=== PATIENT | male | born 1965 | race Caucasian/White ===

== ENCOUNTER 2019-02-09 04:36 | Inpatient (IN) | payer OTHER, SELFPAY ==
[2019-02-09] VITALS (43 sets, daily range): BP systolic 76–136; BP diastolic 44–87; PULSE 59–104; RESP 12–20; TEMP 36.1–37.2; O2SAT 94–100; BMI 24.4; BMI 24.5
--- NOTE | 2019-02-09 | IR_ITS ---
CARDIAC CATHETERIZATION DATE OF CATHETERIZATION:02/09/2019 5:41 AM PROCEDURES: 1. Left heart catheterization 2. Left ventriculogram 3. Selective coronary angiogram 4. Thrombectomy to the proximal dominant right coronary artery followed by drug-eluting stent deployment to the proximal dominant right coronary INDICATION FOR TEST: 1. Acute inferior posterior lateral right ventricular ST elevation myocardial infarction 2. Coronary artery disease Informed consent was obtained prior to the procedure. COMPLICATIONS: None ESTIMATED BLOOD LOSS: Less than 10 ml. TECHNIQUE: One percent lidocaine used to anesthetize the right anterior aspect of the wrist. The right radial artery was accessed via the Seldinger technique. A 6 Samoan sheath was placed in the right radial artery. 2.5 mg of verapamil, 800 mcg of nitroglycerin, 1mg Lidocaine were given through the arterial sheath. An QPSoftware right guide catheter was used intubate the right coronary artery and a choice PT extra-support wire was used to traverse the occlusion. A Penumbra aspiration catheter was used to aspirate a large thrombus there by restoring OLGA LIDIA-3 flow. A 5 mm x 30 mm resolute Bassam stent was deployed at 12 delio reducing the critical stenosis to 0%. Following this left heart catheterization and left ventriculography was performed. A 5 Samoan JL4 catheter was used to perform left coronary artery angiography. At the end of the procedure the apparatus was removed the sheath was removed good hemostasis was achieved using TR banding patient was transferred to the postop holding area in stable condition ANGIOGRAPHIC RESULTS: 1. The left main artery normal 2. The left anterior descending artery has proximal 20-30% stenoses mid vessel 30% stenosis followed by an additional 40-50% stenosis along a tortuous bend followed by an additional 50% stenosis. The LAD system itself is a relatively small system that does not supply the apex. There is a large first diagonal artery which has an ostial to proximal 40-50% stenosis 3. The circumflex artery is nondominant and has a 30% hazy stenosis in the first obtuse marginal artery 4. The right coronary artery is a massively large 5 mm dominant vessel which was initially proximally occluded. Following thrombectomy there is a complex ruptured plaque in the proximal segment with ulceration greater than 80%. There is an additional 40% stenosis 5. The FUNG ventriculogram reveals preserved ejection fraction 50% 6. The left ventricular end-diastolic pressure 20 mmHg IMPRESSION: 1. Critical myocardial infarction involving a massive proximal dominant right coronary artery with successful thrombectomy followed by drug-eluting stent with christianity OLGA LIDIA-3 flow 2. Preserved ejection fraction 3. Mildly elevated LVEDP PLAN: 1. Brilinta and aspirin for one year 2. LDL less than 55 3. Supportive care 4. Risk factor modification 5. Jeison inhibitors and carvedilol once hemodynamically stable 6. Cardiac rehabilitation 7. Avoidance of tobacco products
--- NOTE | 2019-02-09 04:36 | PC.NURSE ---
PT AMBULATES TO ROOM 7 WITH C/O CHEST PAIN. PT STATES HIS PAIN BEGAN AT APPROX 0030 THIS AM AFTER WORK AND HE STATES THAT HE HAD A NEAR SYNCOPAL EVENT WHILE STANDING AT HIS SINK IN WHICH HE BECAME DIZZY AND HAD TO SIT IN THE FLOOR. PT STATES HE THEN LOST HIS BOWEL AND BLADDER. PT NOW C/O CHEST AND BILATERAL ARM PAIN. EKG DONE, STEMI NOTED. DR MEEHAN NOTIFIED IMMEDIATELY AND IS AT BEDSIDE FOR EVAL. DR VYAS PAGED AT THIS TIME FOR STEMI ACTIVATION. PT PLACED ON CARDIAC, SPO2, NIBP MONITORING AND O2 AT 4LBNC. CATH PREPARATION TO FOLLOW.
--- NOTE | 2019-02-09 04:39 | PC.NURSE ---
DR MEEHAN CONSULTING WITH DR VYAS AT THIS TIME. HIGH LEAD YARDER NOTIFIED OF STEMI BY CASE LOADER OPERATOR. PT TO DEFIB MONITORING FOR CLOSE CARDIAC MONITORING. AWAITING CATH TEAM ARRIVAL.
--- NOTE | 2019-02-09 04:45 | XR_ITS ---
XR chest portable HISTORY: ITS.REASON: CHEST PAIN ORDERING PHYSICIAN: Iban Bond MD PATIENT AGE: 53 years COMPARISON: PA and lateral chest 09/15/2013. FINDINGS: The cardiomediastinal silhouette and pulmonary vascularity are within normal limits. The lungs are clear without infiltrates, suspicious nodules, or pleural effusions. No acute bony abnormalities. Monitor lines are seen overlying the chest. IMPRESSION: Negative chest, no acute finding
--- NOTE | 2019-02-09 04:47 | PC.NURSE ---
PATIENT WITH SUSTAINED RUN OF VTACH, PT REMAINS AWAKE ALERT AND ORIENTED. PT C/O PAIN ACROSS CHEST AND BILATERAL ARMS. DR MEEHAN SPEAKING WITH LILLIAM AGAIN CONCERNING EVENT. AWAITING FURTHER ORDERS.
--- NOTE | 2019-02-09 04:51 | HMH.EDCP ---
ED Disposition Clinical Impression: Tobacco use ST elevation myocardial infarction (STEMI) Qualifiers: Involved coronary artery: unspecified coronary artery Qualified Code(s): I21.3 - ST elevation (STEMI) myocardial infarction of unspecified site Disposition: Admitted As Inpatient Condition on Discharge: Critical Referrals: Provider,Referral, [Primary Care Provider] - - Critical Care Critical Care Time: Yes Attestation: On 02/09/19, the high probability of a clinically significant, sudden or life threatening deterioration of the following system(s) required my full and direct attention, intervention and personal management. The time I documented below is in addition to time spent performing reported procedures but includes the following listed in this critical care notation. Total Critical Care Time: 60 Vital system(s) involved:: Circulatory Failure My critical care processes included: Assessment & monitoring of V/S, Initial and Re-exams, Data Review/Interpretation, Coordinating Care, Medication Orders and management, Documentation Medical Decision Making - Medical Records Medical records reviewed: Yes: I reviewed the patient's medical records. - Bo Inquiry Pt receiving controlled substance: No Vital Signs: 02/09/19 04:40 Temperature 98.9 F Temperature Source Oral Pulse Rate [Right Radial] 100 H Respiratory Rate 18 Blood Pressure [Right Arm] 129/87 Blood Pressure Mean [Right Arm] 101 02 Sat by Pulse Oximetry 98 - Lab Data Lab results reviewed: Yes: I reviewed the patient's lab results. Orders (Tests/Meds): ORDERS Category Date Time Status XR chest portable Stat Exams 02/09/19 04:45 Ordered Basic Metabolic Panel Stat Lab 02/09/19 04:45 Received Complete Blood Count Auto Diff Stat Lab 02/09/19 04:45 Received Troponin I Stat Lab 02/09/19 04:45 Received - Radiology Data #1 Image(s): Chest Image Reviewed: Yes I reviewed the patient's radiology image Preliminary Findings: Abnormal (copd) - ECG Data Tracing #1 Normal Sinus Rhythm: Yes Ischemic changes: acute STEMI - Physician Consults Physician Consulted: starla Reason -: Pt condition Chest Pain HPI - General Chief Complaint: Chest Pain Stated Complaint: Chest Pain Time Seen by Provider: 02/09/19 04:40 Mode of Arrival: Ambulatory Source of Information: Patient, Spouse, Medical Record Limitations: No Limitations Description of Symptoms (Recalled from ER Triage Doc. by RN): near syncope at home tonight at approx 0030. pt states he got dizzy while standing at the sink after work and fell to the ground and lost his bowels and bladder. pt states that he is now having chest pain - History of Present Illness HPI narrative: onset of chest pain about 0030 and had syncopal episode - MD complaint: chest pain indicative of cardiac Onset (ago): hour(s) Duration: constant Activity at onset: during rest Pain location: substernal Severity: severe Quality: heaviness Pain radiation: none Associated symptoms: nausea Risk Factors for CAD: Family Hx of CAD, Smoking Treatments prior to or on arrival for Cardiac Chest Pain: none - Related Data Home Medications Medication Instructions Recorded Confirmed No Known Home Medications 02/09/19 02/09/19 Allergies Allergy/AdvReac Type Severity Reaction Status Date / Time No Known Allergies Allergy Verified 02/09/19 04:44 [facility] History - Hepatitis A Screen Drug use history?: Yes High risk sexual behaviors?: No History of sexually transmitted infection?: No Currently employed?: No Childcare worker?: No Do you have indoor plumbing?: Yes Do you have electricity?: Yes Attestation statement:: This patient has been screened for Hepatitis A risk factors. I have reviewed the patient's past medical history: Yes Medical History: Denies:: Cancer, Diabetes Mellitus Type 1, Diabetes Mellitus Type 2, MRSA Amputation: No - Social History Smoking Status:
--- NOTE | 2019-02-09 04:54 | ED_ITS ---
ED Disposition Clinical Impression: Tobacco use ST elevation myocardial infarction (STEMI) Qualifiers: Involved coronary artery: unspecified coronary artery Qualified Code(s): I21.3 - ST elevation (STEMI) myocardial infarction of unspecified site Disposition: Admitted As Inpatient Condition on Discharge: Critical Referrals: Provider,Referral, [Primary Care Provider] - - Critical Care Critical Care Time: Yes Attestation: On 02/09/19, the high probability of a clinically significant, sudden or life threatening deterioration of the following system(s) required my full and direct attention, intervention and personal management. The time I documented below is in addition to time spent performing reported procedures but includes the following listed in this critical care notation. Total Critical Care Time: 60 Vital system(s) involved:: Circulatory Failure My critical care processes included: Assessment & monitoring of V/S, Initial and Re-exams, Data Review/Interpretation, Coordinating Care, Medication Orders and management, Documentation Medical Decision Making - Medical Records Medical records reviewed: Yes: I reviewed the patient's medical records. - Bo Inquiry Pt receiving controlled substance: No Vital Signs: 02/09/19 04:40 Temperature 98.9 F Temperature Source Oral Pulse Rate [Right Radial] 100 H Respiratory Rate 18 Blood Pressure [Right Arm] 129/87 Blood Pressure Mean [Right Arm] 101 02 Sat by Pulse Oximetry 98 - Lab Data Lab results reviewed: Yes: I reviewed the patient's lab results. Orders (Tests/Meds): ORDERS Category Date Time Status XR chest portable Stat Exams 02/09/19 04:45 Ordered Basic Metabolic Panel Stat Lab 02/09/19 04:45 Received Complete Blood Count Auto Diff Stat Lab 02/09/19 04:45 Received Troponin I Stat Lab 02/09/19 04:45 Received - Radiology Data #1 Image(s): Chest Image Reviewed: Yes I reviewed the patient's radiology image Preliminary Findings: Abnormal (copd) - ECG Data Tracing #1 Normal Sinus Rhythm: Yes Ischemic changes: acute STEMI - Physician Consults Physician Consulted: starla Reason -: Pt condition Chest Pain HPI - General Chief Complaint: Chest Pain Stated Complaint: Chest Pain Time Seen by Provider: 02/09/19 04:40 Mode of Arrival: Ambulatory Source of Information: Patient, Spouse, Medical Record Limitations: No Limitations Description of Symptoms (Recalled from ER Triage Doc. by RN): near syncope at home tonight at approx 0030. pt states he got dizzy while standing at the sink after work and fell to the ground and lost his bowels and bladder. pt states that he is now having chest pain - History of Present Illness HPI narrative: onset of chest pain about 0030 and had syncopal episode - MD complaint: chest pain indicative of cardiac Onset (ago): hour(s) Duration: constant Activity at onset: during rest Pain location: substernal Severity: severe Quality: heaviness Pain radiation: none Associated symptoms: nausea Risk Factors for CAD: Family Hx of CAD, Smoking Treatments prior to or on arrival for Cardiac Chest Pain: none - Related Data Home Medications Medication Instructions Recorded Confirmed No Known Home Medicat
[2019-02-09 04:58] LABS: Basophils % 0.2 % (0.1-2.0); Eosinophils % 0.2 % (0.1-12.0); Hematocrit 47.3 % (42.0-52.0); Hemoglobin 15.6 g/dL (14.1-18.0); Lymphocytes # 1.6 K/mm3 (0.7-4.5); Mean Corpuscular HGB Conc 32.9 g/dL (31.8-35.4); Mean Corpuscular Hemoglobin 29.2 pg (27.0-31.2); Mean Corpuscular Volume 88.8 fl (80-94); Mean Platelet Volume 6.5 fl (7.4-10.4); Monocytes # 0.6 K/mm3 (0.1-1.0); Monocytes % 3.2 % (1.7-9.3); Neutrophils # 15.4 K/mm3 (1.8-7.8); Neutrophils % 87.4 % (37.0-80.0); Platelet Count 450 K/mm3 (142-424); Red Blood Count 5.33 M/mm3 (4.60-6.20); Red Cell Distribution Width 12.9 % (11.5-17.5); White Blood Count 17.6 K/mm3 (4.8-10.8)
--- NOTE | 2019-02-09 05:03 | PC.NURSE ---
PATIENT TO [facility] AT THIS TIME ON CARDIAC MONITORING BY STRETCHER WITH NURSE AND EMT-P AT BEDSIDE FOR TRANSPORT. HANDOFF REPORT GIVEN TO JOAQUIN RN IN VEGETABLE [facility]CHER. PROCEDURE TO FOLLOW.
[2019-02-09 05:07] LABS: Anion Gap 21.9 mEq/L (5-15); Blood Urea Nitrogen 19 mg/dL (7-18); Calcium 9.7 mg/dL (8.5-10.1); Carbon Dioxide 21 mmol/L (21.0-32.0); Chloride 99 mmol/L (98-107); Creatinine Clearance Estimated 49 mL/min (50-200); Creatinine,Serum 2.01 mg/dL (0.70-1.30); Estimated Glomerular Filt Rate 35 ml/min (>60); GFR (African American) 43 ML/MIN (>60); Glucose 230 mg/dL (74-106); Potassium 3.9 mmoL/L (3.5-5.1); Sodium 138 mmol/L (136-145); Troponin I 0.04 ng/ml (0.00-0.06)
--- NOTE | 2019-02-09 05:09 | PC.NURSE ---
DR MEEHAN CONSULTING WITH DR AYALA CONCERNING ADMIT.
[2019-02-09 05:21] LABS: MANUAL DIFFERENTIAL MANUAL DIFFERENTIAL (MANUAL DIFF)
[2019-02-09 05:44] LABS: Eosinophils % 1 % (0-3); Lymphocytes % 12 % (10-50); Neutrophils % 87 % (42-76); Platelet Estimate Normal; Total Cells Counted 100
[2019-02-09 05:45] LABS: Stomatocytes 1+
--- NOTE | 2019-02-09 07:16 | PC.NURSE ---
Received pt from rn cardiac cath at 0633, transferred to room 262 with rn cardiac cath staff, Flavia Daigle RN and Rik Ventura RN. Pt on Integrilin drip at 5ml/hr, pt's weight 176 running in #18 in lac, #20 in RAC - saline locked. Initial tele strip read as sinus arrhythmia with one PVC, rate of 80. Denies chest pain or any pain. Report given to Maame Greene RN at this time.
--- NOTE | 2019-02-09 07:35 | P.CONPHA_ITS ---
[facility] Pharm[facility] VTE Monitoring - Patient Demographics Admission date: 02/08/19 Report Date: 02/09/19 Time: 07:35 Allergies/Adverse Reactions: Patient Allergies No Known Allergies Allergy (Verified 02/09/19 04:44) Height: 1.8 m Weight: 79.832 kg Patient Problems: Current Active Problems (Updated 02/09/19 @ 04:59 by Iban Bond MD) ST elevation myocardial infarction (STEMI) (Acute) Tobacco use (Acute) - VTE Risk Labs: VTE Related Lab Results Hgb 15.6 g/dL (14.1-18.0) 02/09/19 04:45 Hct 47.3 % (42.0-52.0) 02/09/19 04:45 Plt Count 450 K/mm3 (142-424) H 02/09/19 04:45 BUN 19 mg/dL (7-18) H 02/09/19 04:45 Creatinine 2.01 mg/dL (0.70-1.30) H 02/09/19 04:45 Estimated Creat Clear 49 mL/min (50-200) 02/09/19 04:45 - Prophylaxis VTE Prophylaxis Ordered?: Yes Types of VTE Prophylaxis: TEDS Knee High Location of Applied Device: Bilateral Lower Extremeties - VTE Diagnosis Confirmed Treatment or plan recommended: Continue Current Treatment
--- NOTE | 2019-02-09 07:45 | HMH.HP ---
*Admission Date: 02/08/19 *Chief complaint: STEMI *History of present illness: Mr. Lerner is a 53-year-old male with no significant past medical history who presents with acute onset of chest pain and diaphoresis this morning approximately 130. States he woke up to go to the bathroom and became diaphoretic. Splashed water in his face and then became dizzy. Slid down the wall where he promptly vomited and defecated upon himself. He says shortly thereafter he got up and took a shower and felt better. It was after the shower that he developed chest pain and pressure across his entire chest with radiation down his left arm. It was at this time that he called EMS. Shortly thereafter he was brought to the ER by private vehicle. Upon presentation patient was found to have STEMI and slight elevation in troponin. Talent Solutions Manager was activated and patient promptly taken for percutaneous intervention. At this time patient is status post placement of single stent in the RCA. He is chest pain-free and resting in the ICU. Denies shortness of breath, cough, headache, nausea vomiting, abdominal pain. Of note patient is a longtime smoker, proximally a pack a day for 40 years. [facility] History I have reviewed the patient's past medical history: Yes Medical History: Denies:: Cancer, Diabetes Mellitus Type 1, Diabetes Mellitus Type 2, MRSA *Have you ever received a pneumonia vaccine?: No *Have you received a flu vaccine this season?: No Amputation: No - *Social History Educational Level: Completed Grade School Smoking Status: Current every day smoker Tobacco Type: cigarettes # Packs/Day (cigarettes): 1 #Yrs smoked (if former smoker): 40 Alcohol Intake: never Substance Use Type: marijuana *Occupational Status:: employed Housing: house Household Members: spouse *Travel in the last 8 weeks: None - Psychiatric History Expresses thoughts of harming self/others: None Suicide Plan Description: No Plan Family Hx:: No significant family history Review of Systems - Review of Systems Review of systems:: pertinent systems reviewed and negative unless documented below - *Neurologic Denies seizure-like activity Meds Home Medications Medication Instructions Recorded Confirmed Type No Known Home Medications 02/09/19 02/09/19 History Allergies Allergy/AdvReac Type Severity Reaction Status Date / Time No Known Allergies Allergy Verified 02/09/19 04:44 Exam Vital signs and Labs for Last 24 Hours: Temp Pulse Resp BP Pulse Ox 97.5 F L 82 14 130/62 97 02/09/19 07:44 02/09/19 07:44 02/09/19 07:44 02/09/19 07:44 02/09/19 07:44 Laboratory Results - last 24 hr 02/09/19 04:45: Sodium 138, Potassium 3.9, Chloride 99, Carbon Dioxide 21, Anion Gap 21.9 H, BUN 19 H, Creatinine 2.01 H, Estimated Creat Clear 49, Estimated GFR 35 L, Est GFR ( Amer) 43 L, Glucose 230 H, Calcium 9.7, Troponin I 0.04 02/09/19 04:45: WBC 17.6 H, RBC 5.33, Hgb 15.6, Hct 47.3, MCV 88.8, MCH 29.2, MCHC 32.9, RDW 12.9, Plt Count 450 H, MPV 6.5 L, Neut % (Auto) 87.4 H, Lymph % (Auto) 9.0 L, Pacific % (Auto) 3.2, Eos % (Auto) 0.2, Baso % (Auto) 0.2, Neut # (Auto) 15.4 H, Lymph # (Auto) 1.6, Pacific # (Auto) 0.6, Eos # (Auto) 0.0, Baso # (Auto) 0.0, Total Counted 100, Neutrophils % (Manual) 87 H, Lymphocytes % (Manual) 12, Eosinophils % (Manual) 1, Platelet Estimate Normal, Stomatocytes 1+ I & O for Last 24 hours: Intake & Output 02/06/19 02/07/19 02/08/19 02/09/19 23:59 23:59 23:59 23:59 Weight 79.832 kg - *Routine HEENT Exam Head: Present: normocephalic Eye: Present: EOMI, PERRL ENT: Present: mucous membranes moist - *Routine Neck Exam Present: supple. Absent: lymphadenopathy - *Routine Respiratory Exam Present: CTA bilaterally - *Routine Cardiovascular Exam Present: RRR - *Routine Abdominal Exam Present: soft, normoactive bowel sounds. Absent: tenderness - *Routine Extremities Exam Absent: cyanosis, clubbing, edema Comments: C
[2019-02-09 08:33] LABS: CATHL Activated Clotting Time 392 SEC (74-125)
--- NOTE | 2019-02-09 11:03 | HMH.CNCARD ---
History of Present Illness Consult date: 02/09/19 Requesting physician: Trevor Bonner Consult reason: chest pain Chief complaint: Chest pain- STEMI Additional Medical History:: 1. STEMI (02/09/19) a. Woke up with wall pain radiating down both arms. b. Successful stenting to the RCA. c. Started on Brilinta and aspirin. 2. Ventricular tachycardia a. Frequent runs of V. tach, bigeminy and trigeminy. b. Asymptomatic. c. Reperfusion from the SC. 3. Hypotension. 4. Hyperlipidemia. a. Currently started on statin therapy. 5. No significant history of CAD previous. 6. Tobacco dependence syndrome. a. Smokes 1 pack/day for over 40 years. History of present illness: 53-year-old male presented to emergency room early this a.m. Patient stated he was going to the restroom and became very dizzy. Patient complained of severe chest pain radiating down arms bilaterally. Patient stated he was diaphoretic and was trying to splash cold water on his face. Patient denies any significant history of heart disease. Patient states he has been feeling fine up until this episode early this morning. Patient did undergo a left heart catheterization within 45 minutes of arrival to ED. Successful stenting of the RCA was noted with successful thrombectomy. Patient is alert and oriented x3. Family is at bedside. Right wrist was accessed for left heart catheterization. Pressure device still intact of the right wrist. Patient denies chest pain, shortness of breath or dizziness at this time. Patient is resting quietly. No fever chills noted. Patient denies nausea or vomiting. Maternal history noted with heart failure and . Father of chronic kidney disease. 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 Patient is asymptomatic with these episodes. These episodes are mostly due to re-perfusion. We will continue to monitor. Initial work-up in the ED was performed. EKG revealed STEMI. Chest x-ray negative for any acute findings. Will obtain echocardiogram today to assess for LV function and valve status. Initial lab creatinine 2.01 with a BUN of 19. Patient is hypotensive since heart catheterization. Will recommend to start JEISON inhibitor and carvedilol once patient is hemo-dynamically stable. Left heart catherization: (02/09/19) 1. Critical myocardial infarction involving a massive proximal dominant right coronary artery with successful thrombectomy followed by drug-eluting stent with baptism OLGA LIDIA-3 flow 2. Preserved ejection fraction 3. Mildly elevated LVEDP PLAN: 1. Brilinta and aspirin for one year 2. LDL less than 55 3. Supportive care 4. Risk factor modification 5. Jeison inhibitors and carvedilol once hemodynamically stable 6. Cardiac rehabilitation 7. Avoidance of tobacco products Discussed plan of care with Dr. Bonner and pt. Will continue to monitor patient for signs and symptoms. Patient instructed not to use right wrist for several days due to recent heart catheterization. Advised to no heavy lifting or strenuous activity until follow-up in cardiology clinic. Will have patient follow-up in cardiology clinic in 1 week or sooner if symptoms persist or develop. Thank you for letting cardiology participate in the care of this patient. [facility] History I have reviewed the patient's past medical history: Yes Medical History: Reports:: Arrhythmia, Coronary Artery Disease, Hyperlipidemia, Myocardial Infarction Denies:: Cancer, Diabetes Mellitus Type 1, Diabetes Mellitus Type 2, MRSA *Have you ever received a pneumonia vaccine?: No *Have you received a flu vaccine this season?: No Other Surgeries: Yes: Hernia Repair Amputation: No Fractures: No - *Social History Educational Level: Completed Grade School Smoking Status: Current every day smoker Tobacco Type: cigarettes # Packs/Day (cigarettes): 1 #Yrs smoked (if former smoker): 40 Alcohol Intake: ne
--- NOTE | 2019-02-09 11:09 | P.CONS_ITS ---
History of Present Illness Consult date: 02/09/19 Requesting physician: Trevor Bonner Consult reason: chest pain Chief complaint: Chest pain- STEMI Additional Medical History:: 1. STEMI (02/09/19) a. Woke up with wall pain radiating down both arms. b. Successful stenting to the RCA. c. Started on Brilinta and aspirin. 2. Ventricular tachycardia a. Frequent runs of V. tach, bigeminy and trigeminy. b. Asymptomatic. c. Reperfusion from the PA. 3. Hypotension. 4. Hyperlipidemia. a. Currently started on statin therapy. 5. No significant history of CAD previous. 6. Tobacco dependence syndrome. a. Smokes 1 pack/day for over 40 years. History of present illness: 53-year-old male presented to emergency room early this a.m. Patient stated he was going to the restroom and became very dizzy. Patient complained of severe chest pain radiating down arms bilaterally. Patient stated he was diaphoretic and was trying to splash cold water on his face. Patient denies any significant history of heart disease. Patient states he has been feeling fine up until this episode early this morning. Patient did undergo a left heart catheterization within 45 minutes of arrival to ED. Successful stenting of the RCA was noted with successful thrombectomy. Patient is alert and oriented x3. Family is at bedside. Right wrist was accessed for left heart catheterization. Pressure device still intact of the right wrist. Patient denies chest pain, shortness of breath or dizziness at this time. Patient is resting quietly. No fever chills noted. Patient denies nausea or vomiting. Maternal history noted with heart failure and . Father of chronic kidney disease. surveillance monitor reveals frequent runs of V. tach, bigeminy and trigeminy. Patient is asymptomatic with these episodes. These episodes are mostly due to re-perfusion. We will continue to monitor. Initial work-up in the ED was performed. EKG revealed STEMI. Chest x-ray negative for any acute findings. Will obtain echocardiogram today to assess for LV function and valve status. Initial lab creatinine 2.01 with a BUN of 19. Patient is hypotensive since heart catheterization. Will recommend to start JEISON inhibitor and carvedilol once patient is hemo-dynamically stable. Left heart catherization: (02/09/19) 1. Critical myocardial infarction involving a massive proximal dominant right coronary artery with successful thrombectomy followed by drug-eluting stent with church OLGA LIDIA-3 flow 2. Preserved ejection fraction 3. Mildly elevated LVEDP PLAN: 1. Brilinta and aspirin for one year 2. LDL less than 55 3. Supportive care 4. Risk factor modification 5. Jeison inhibitors and carvedilol once hemodynamically stable 6. Cardiac rehabilitation 7. Avoidance of tobacco products Discussed plan of care with Dr. Bonner and pt. Will continue to monitor patient for signs and symptoms. Patient instructed not to use right wrist for several days due to recent heart catheterization. Advised to no heavy lifting or strenuous activity until follow-up in cardiology clinic. Will have patient follow-up in cardiology clinic in 1 week or sooner if symptoms persist or develop. Thank you for letting cardiology participate in the care of this patient. [facility] History I have reviewed the patient's past medical history: Yes Medical History: Reports:: Arrhythmia, Coronary Artery Disease, Hyperlipidemia, Myocardial Infarction Denies:: Cancer, Diabetes Mellitus Type 1, Diabetes Mellitus Type 2, MRSA *Have you ever received a pneumonia vaccine?: No *Have you receiv
--- NOTE | 2019-02-09 11:31 | CA_ITS ---
PROCEDURE: Limited echo to evaluate left ventricular systolic function ,status post MS INDICATIONS FOR THE TEST: Chest painX COPD Heart Murmur Tobacco Smoking Palpitations Fatigue Syncope Edema Hypertension Diabetes Mellitus Rheumatic Fever SOB BIRCH Obesity Hyperlipidemia Family History HD Additional History STEMI,STENTING,ECTOPY LIMITED EXAM SECONDARY TO EXTERNAL PACER ELECTRODE PATIENT INFORMATION HEIGHT:71 WEIGHT:176 GENDER: Male B/P:88/56 2-D/M-MODE INTERPRETATION: 2-D MEASUREMENTS OBSERVED VALUES IN CMS Right Ventricular Dimension (RVDd) Interventricular Septum (Thickness)(IVsd) Left Ventricular Internal Dimensions(LVIDd) Left Ventricular Posterior Wall (Thickness)(LVPWd) Aortic Root Aortic Cusp Separation Left Atrial Dimensions (LAD) 2D 1. Left atrium is mildly enlarged, left ventricle is normal size, there is mild concentric left ventricular hypertrophy, there is reduced left ventricular systolic function, visually estimated ejection fraction 40%, there is marked hypo to akinesis involving the inferior, inferior basal, basal septum and posterobasal wall. 2. The right atrium and right ventricle are mildly enlarged, contractility of the right ventricle is moderately reduced. 3. The aortic valve is minimally thickened and fibrosed. 4. The mitral and tricuspid valve leaflets are minimally thickened. 5. The pulmonic valve is poorly present. 6. No significant pericardial effusion noted. DOPPLER INTERROGATION: Doppler interrogation of the aortic, mitral and tricuspid valvular presence of mild mitral and tricuspid regurgitation, grade 1 diastolic dysfunction seen without tissue Doppler evidence of raised left atrial pressure. CONCLUSION: 1. Mildly enlarged left atrium, normal left ventricular size, mild concentric left ventricular hypertrophy, visually estimated ejection fraction 40% with segmental wall motion abnormality described above, grade 1 diastolic dysfunction seen without tissue Doppler evidence of raised left atrial pressure. 2. Mildly enlarged right atrium with moderate reduction in right ventricular contractility. 3. Mild mitral and tricuspid regurgitation 4. No significant pericardial effusion noted.
--- NOTE | 2019-02-09 11:45 | PC.NURSE ---
PLEASE NOTE PER DR VYAS REQUEST STAT EKG WAS SENT TO HIM TO REVIEW NOT TAKEN TO ER DOCTOR
[2019-02-09 13:36] LABS: Activated Partial Thrombo Time 25.9 seconds (23.6-34.0); INR 0.98 (0.9-1.1); Prothrombin Time 10.2 seconds (9.4-11.8)
--- NOTE | 2019-02-09 13:38 | PC.NURSE ---
report given to mansoor
--- NOTE | 2019-02-09 15:43 | PC.NURSE ---
Addendum entered by Sary Greene RN 02/09/19 15:51: PLEASE NOTE RIGHT RADIAL SITE IS SOFT AND DRESSING IS C/D/I WITH NO HEMATOMA NOTED Original Note: PATIENT CONTINUES TO HAVE LONG RUNS OF VTACH. MOST RECENT RUN WAS 59 BEATS. STRIP PLACED ON CHART FOR MD REVIEW. DR AYALA AND DR VYAS ARE AWARE OF LONG RUNS OF VTACH INCLUDING 50 BEAT RUN EARLIER IN SHIFT. PATIENT WAS SLEEPING WHEN THE 59 BEAT RUN OCCURRED. PATIENT AROUSED EASILY AND DENIES PAIN OR DISCOMFORT AT THIS TIME. 2LNC ON FOR COMFORT. INTEGRILIN DRIP INFUSING WITHOUT ISSUE. VISITORS ARE BEING KEPT TO A MINIMAL LEVEL SO THE PATIENT CAN REST. CALL LIGHT WITHIN REACH, PATIENT WITHIN VIEW OF THIS NURSE, WILL CONTINUE TO MONITOR.
--- NOTE | 2019-02-09 16:35 | PC.NURSE ---
per nurse do not get trash and ice at this time
--- NOTE | 2019-02-09 17:20 | PC.NURSE ---
AT 1705 PATIENT COMPLAINED OF SOA AND CHEST TIGHTNESS. AFTER 2 DOSES OF 0.4MG SL NITRO HE STATES HE IS FEELING MUCH BETTER.
[2019-02-09 18:13] LABS: Anion Gap 14.1 mEq/L (5-15); Blood Urea Nitrogen 21 mg/dL (7-18); Carbon Dioxide 25 mmol/L (21.0-32.0); Chloride 106 mmol/L (98-107); Creatinine Clearance Estimated 82 mL/min (50-200); Estimated Glomerular Filt Rate 64 ml/min (>60); GFR (African American) 77 ML/MIN (>60); Potassium 4.1 mmoL/L (3.5-5.1); Sodium 141 mmol/L (136-145)
[2019-02-09 18:15] LABS: Calcium 7.9 mg/dL (8.5-10.1); Glucose 119 mg/dL (74-106)
--- NOTE | 2019-02-09 20:16 | PC.NURSE ---
patient resting in bed, right radial cath site c,d,i. education done on cath site restrictions. not lifting anytime with right hand, dressing to stay on for 3 days. educated on brillinta and lipid therapy, purpose of therapy and side effects of increased risk of bleeding with brillinta therapy and duration of brillinta therapy. answered any questions.
--- NOTE | 2019-02-09 20:48 | PC.NURSE ---
2044 patient reports chest tightness at 4 on pain scale radiating between shoulder blades. nitroglycerin sl given. education on tingling of nitroglycerin under tongue. education on reperfusion post heart cath. denies, nausea, vomiting soa and diaphoresis
--- NOTE | 2019-02-09 20:52 | PC.NURSE ---
pain decreasing after 1 nitro, rates pain at a 2 and decreasing. hr 67, sats 95 on 2 lnc, 19 resp rate. 97/60 bp.
[2019-02-10] VITALS (21 sets, daily range): BP systolic 99–135; BP diastolic 66–88; PULSE 64–119; RESP 14–23; TEMP 36.6–37.1; O2SAT 95–99
--- NOTE | 2019-02-10 00:12 | PC.NURSE ---
0005 c/o chest tightness at 4 on pain scale, nitro 0.4 mg given sl. denies nausea, vomiting soa or diaphoresis
--- NOTE | 2019-02-10 00:17 | PC.NURSE ---
pain remains at a 4 on pain scale, additional nitro given 0.4 mg sl. 102/59 bp, 87 94% on 2 l nc. rr 12
--- NOTE | 2019-02-10 00:19 | PC.NURSE ---
pain starting to decrease at this time. rates his pain 2 on scale and decreasing. denies nausea, vomiting, soa or diaphoresis
--- NOTE | 2019-02-10 03:05 | PC.NURSE ---
patient has been resting with eyes closed, awakens easily. continues to have multiple ectopic beats. having runs of pvcs up to 12 beats, patient asymptomatic with runs
--- NOTE | 2019-02-10 04:01 | PC.NURSE ---
patient complaining of slight chest tightness at 2 on pain scale but not anything he can't tolerate. instructed patient again about earlier intervention with pain control. instructed patient to notify nurse if pain increases.
[2019-02-10 05:03] LABS: Basophils % 0.1 % (0.1-2.0); Eosinophils # 0.1 K/mm3 (0.0-0.4); Eosinophils % 1.3 % (0.1-12.0); Hematocrit 36.9 % (42.0-52.0); Lymphocytes # 2.3 K/mm3 (0.7-4.5); Lymphocytes % 27.9 % (10-50); Mean Corpuscular HGB Conc 32.5 g/dL (31.8-35.4); Mean Corpuscular Hemoglobin 29.3 pg (27.0-31.2); Mean Corpuscular Volume 90.2 fl (80-94); Mean Platelet Volume 6.6 fl (7.4-10.4); Monocytes # 0.5 K/mm3 (0.1-1.0); Monocytes % 6.5 % (1.7-9.3); Neutrophils # 5.2 K/mm3 (1.8-7.8); Neutrophils % 64.2 % (37.0-80.0); Platelet Count 294 K/mm3 (142-424); Red Blood Count 4.09 M/mm3 (4.60-6.20); White Blood Count 8.1 K/mm3 (4.8-10.8)
[2019-02-10 05:14] LABS: Anion Gap 11.9 mEq/L (5-15); Blood Urea Nitrogen 13 mg/dL (7-18); Carbon Dioxide 26 mmol/L (21.0-32.0); Chloride 107 mmol/L (98-107); Chol/HDL Ratio 4.2 (1-3.5); Cholesterol 152 mg/dL (140-200); Creatinine Clearance Estimated 102 mL/min (50-200); Creatinine,Serum 0.97 mg/dL (0.70-1.30); Estimated Glomerular Filt Rate 82 ml/min (>60); GFR (African American) 99 ML/MIN (>60); Glucose 104 mg/dL (74-106); HDL Cholesterol 36 mg/dL (27-67); LDL Cholesterol 77 mg/dL (0-130); Potassium 3.9 mmoL/L (3.5-5.1); Sodium 141 mmol/L (136-145); Triglycerides 197 mg/dL (30-200); VLDL Cholesterol 39 mg/dL (0-40)
--- NOTE | 2019-02-10 07:28 | HMH.ACPN2 ---
Internal Medicine - PN: Subj *Date: 02/10/19 *Time: 07:28 Interval history: Patient has continued to have episodes of chest pain overnight although this chest pain is different than the discomfort that brought him in initially. He describes pain starting in the lower sternum and radiating around the right side of the rib cage and into the back. He denies nausea and has not vomited. Nursing staff reports that his pain diminishes with administration of sublingual nitroglycerin but usually will return within a 2-hour period. He continues to have runs of V. tach for which she remains asymptomatic. Exam Vital signs and Labs for Last 24 Hours: Temp Pulse Resp BP Pulse Ox 98 F 74 15 107/68 L 98 02/10/19 06:00 02/10/19 07:00 02/10/19 07:00 02/10/19 07:00 02/10/19 07:00 Laboratory Results - last 24 hr 02/09/19 05:27: Activated Clotting Time 392 H* 02/09/19 13:05: PT 10.2, INR 0.98, APTT 25.9 02/09/19 18:00: Sodium 141, Potassium 4.1, Chloride 106, Carbon Dioxide 25, Anion Gap 14.1, BUN 21 H, Creatinine 1.20 D, Estimated Creat Clear 82, Estimated GFR 64, Est GFR ( Amer) 77 D, Glucose 119 H D, Calcium 7.9 L D 02/10/19 04:55: WBC 8.1 D, RBC 4.09 L, Hgb 12.0 L, Hct 36.9 L, MCV 90.2, MCH 29.3, MCHC 32.5, RDW 13.0, Plt Count 294 D, MPV 6.6 L, Neut % (Auto) 64.2, Lymph % (Auto) 27.9, [place] % (Auto) 6.5, Eos % (Auto) 1.3, Baso % (Auto) 0.1, Neut # (Auto) 5.2, Lymph # (Auto) 2.3, [place] # (Auto) 0.5, Eos # (Auto) 0.1, Baso # (Auto) 0.0 02/10/19 04:55: Sodium 141, Potassium 3.9, Chloride 107, Carbon Dioxide 26, Anion Gap 11.9, BUN 13 D, Creatinine 0.97, Estimated Creat Clear 102, Estimated GFR 82, Est GFR ( Amer) 99 D, Glucose 104, Calcium 8.0 L, Triglycerides 197, Cholesterol 152, LDL Cholesterol 77, VLDL Cholesterol 39, HDL Cholesterol 36, Cholesterol/HDL Ratio 4.2 H I & O for Last 24 hours: Intake & Output 02/07/19 02/08/19 02/09/19 02/10/19 11:59 11:59 11:59 11:59 Intake Total 262 / 800 2851 / 2851 Output Total 2485 / 2485 Balance 262 / 800 366 / 366 Weight 176 lb Narrative: He looks comfortable. He is in no distress. Lungs are clear to auscultation. Heart has a regular rate and rhythm. Chest has no tenderness. Abdomen is soft with right upper quadrant tenderness and active bowel sounds. Assessment and Plan (1) ST elevation myocardial infarction (STEMI) Current visit: Yes Status: Acute Qualifiers: Involved coronary artery: unspecified coronary artery Qualified Code(s): I21.3 - ST elevation (STEMI) myocardial infarction of unspecified site Category: Medical Code(s): I21.3 - ST elevation (STEMI) myocardial infarction of unspecified site Patient will move out of ICU to stepdown. He is allowed to get out of bed sitting the chair and ambulate with assistance. Monitor closely due to patient's blood pressure running low which he tells me is his norm. (2) Tobacco use Current visit: Yes Status: Acute Category: Medical Code(s): Z72.0 - Tobacco use (3) Right upper quadrant pain Current visit: Yes Status: Acute Category: Medical Code(s): R10.11 - Right upper quadrant pain No intervention at this time (4) Ventricular tachycardia seen on cardiac care unit nurse Current visit: Yes Status: Acute Category: Medical Code(s): I47.2 - Ventricular tachycardia (5) Acute kidney failure Current visit: Yes Status: Resolved Category: Medical Code(s): N17.9 - Acute kidney failure, unspecified
--- NOTE | 2019-02-10 07:32 | P.PN_ITS ---
Internal Medicine - PN: Subj *Date: 02/10/19 *Time: 07:28 Interval history: Patient has continued to have episodes of chest pain overnight although this chest pain is different than the discomfort that brought him in initially. He describes pain starting in the lower sternum and radiating around the right side of the rib cage and into the back. He denies nausea and has not vomited. Nursing staff reports that his pain diminishes with administration of sublingual nitroglycerin but usually will return within a 2-hour period. He continues to have runs of V. tach for which she remains asymptomatic. Exam Vital signs and Labs for Last 24 Hours: Temp Pulse Resp BP Pulse Ox 98 F 74 15 107/68 L 98 02/10/19 06:00 02/10/19 07:00 02/10/19 07:00 02/10/19 07:00 02/10/19 07:00 Laboratory Results - last 24 hr 02/09/19 05:27: Activated Clotting Time 392 H* 02/09/19 13:05: PT 10.2, INR 0.98, APTT 25.9 02/09/19 18:00: Sodium 141, Potassium 4.1, Chloride 106, Carbon Dioxide 25, Anion Gap 14.1, BUN 21 H, Creatinine 1.20 D, Estimated Creat Clear 82, Estimated GFR 64, Est GFR ( Amer) 77 D, Glucose 119 H D, Calcium 7.9 L D 02/10/19 04:55: WBC 8.1 D, RBC 4.09 L, Hgb 12.0 L, Hct 36.9 L, MCV 90.2, MCH 29.3, MCHC 32.5, RDW 13.0, Plt Count 294 D, MPV 6.6 L, Neut % (Auto) 64.2, Lymph % (Auto) 27.9, [place] % (Auto) 6.5, Eos % (Auto) 1.3, Baso % (Auto) 0.1, Neut # (Auto) 5.2, Lymph # (Auto) 2.3, [place] # (Auto) 0.5, Eos # (Auto) 0.1, Baso # (Auto) 0.0 02/10/19 04:55: Sodium 141, Potassium 3.9, Chloride 107, Carbon Dioxide 26, Anion Gap 11.9, BUN 13 D, Creatinine 0.97, Estimated Creat Clear 102, Estimated GFR 82, Est GFR ( Amer) 99 D, Glucose 104, Calcium 8.0 L, Triglycerides 197, Cholesterol 152, LDL Cholesterol 77, VLDL Cholesterol 39, HDL Cholesterol 36, Cholesterol/HDL Ratio 4.2 H I & O for Last 24 hours: Intake & Output 02/07/19 02/08/19 02/09/19 02/10/19 11:59 11:59 11:59 11:59 Intake Total 262 / 800 2851 / 2851 Output Total 2485 / 2485 Balance 262 / 800 366 / 366 Weight 176 lb Narrative: He looks comfortable. He is in no distress. Lungs are clear to auscultation. Heart has a regular rate and rhythm. Chest has no tenderness. Abdomen is soft with right upper quadrant tenderness and active bowel sounds. Assessment and Plan (1) ST elevation myocardial infarction (STEMI) Current visit: Yes Status: Acute Qualifiers: Involved coronary artery: unspecified coronary artery Qualified Code(s): I21.3 - ST elevation (STEMI) myocardial infarction of unspecified site Category: Medical Code(s): I21.3 - ST elevation (STEMI) myocardial infarction of unspecified site Patient will move out of ICU to stepdown. He is allowed to get out of bed sitting the chair and ambulate with assistance. Monitor closely due to patient's blood pressure running low which he tells me is his norm. (2) Tobacco use Current visit: Yes Status: Acute Category: Medical Code(s): Z72.0 - Tobacco use (3) Right upper quadrant pain Current visit: Yes Status: Acute Category: Medical Code(s): R10.11 - Right upper quadrant pain No intervention at this time (4) Ventricular tachycardia seen on monitoring engineer Current visit: Yes Status: Acute Category: Medical Code(s): I47.2 - Ventricular tachycardia (5) Acute kidney failure Current visit: Yes Status: Resolved Category: Medical Code(s): N17.9 -
--- NOTE | 2019-02-10 07:34 | PC.NURSE ---
REPORT GIVEN TO Lou YODER
--- NOTE | 2019-02-10 13:53 | PC.NURSE ---
CONTACTED MD ABOUT PATIENT COMPLAINTS OF A 'SINUS HEADACHE . PATIENT ALSO HAD COMPLAINTS OF A BUBBLE IN HIS RIGHT PECTORAL AREA THAT RADIATED STRAIGHT BACK TO SHOULDER BLADE AND SHOULDER. PATIENT WAS GIVEN A NITRO SO THIS MAY IN CREASE HEADACHE. REQUESTING TYLENOL. MD OKAYED TO GIVE TYLENOL 650MG PO Q4HR PRN FOR PAIN. MD ALSO FEELS IT MAY BE PARTLY GI RELATED SINCE HE ALSO HAS RUQ PAIN THAT IS SENSITIVE TO TOUCH. STATING TO NOT GIVE MUCH NITRO AND TO GIVE A ONE TIME DOSE OF A GI COCKTAIL.
--- NOTE | 2019-02-10 14:45 | PC.NURSE ---
REASSESSED PATIENT AFTER ADMINISTRATION OF THE GI COCKTAIL. PATIENT STATES HE BELIEVES THAT HAS HELP TREMENDOUSLY . HE STATES HE NOTICED THE PAIN DECREASE GREATLY.
--- NOTE | 2019-02-10 17:36 | PC.NURSE ---
HAS HAD NO COMPLAINTS SINCE GI COCKTAIL. HAS BEEN UP TO CHAIR THIS SHIFT. HAS BEEN VISITING WITH FAMILY THROUGH OUT THE DAY. SOME ANXIETY ABOUT EVERYTHING THAT HAS HAPPENED, CONTINUED EDUCATION HAS BEEN PROVIDED ON MEDS AND HOME CARE. HE HAS NOT HAD ANY RUNS OF VTACH THIS SHIFT. HEART RATE HAS BEEN 70S-80S. BP HAS BEEN WITHIN NORMAL LIMITS. RINGS OUT NEEDED. VSS WILL CONTINUE TO MONITOR.
[2019-02-11] VITALS: BP 105/75; PULSE 70; PULSE 80; O2SAT 97
[2019-02-11 02:00] VITALS: BP 110/80; PULSE 36; O2SAT 97
--- NOTE | 2019-02-11 03:10 | PC.NURSE ---
He has been resting in bed. Ambulated independently to the bathroom with steady gait. Stated he had been up to the chair during the day. He denies SOA, chest pain, nausea, or weakness. NSR with inverted T wave on telemetry. He has a nicotine patch on RUE. Stated his last BM was 02/10. Voiding per urinal at times. Urine is yellow, clear. Right radial site is [employer] PRODUCT [employer]IST. No bruising or drainage at site. He was educated to not put any pressure on RUE and he verbalized understanding. Capillary refill <3. Positive radial and pedal pulses. Lung sounds CTA. Normoactive bowel sounds. He denies abdominal tenderness and stated he believed the medication that he received on the previous shift helped.
[2019-02-11 04:00] VITALS: BP 99/63; PULSE 70; PULSE 72; O2SAT 97
[2019-02-11 04:15] VITALS: PULSE 50
[2019-02-11 05:00] VITALS: BMI 25.9
[2019-02-11 05:21] LABS: Basophils % 0.3 % (0.1-2.0); Eosinophils # 0.1 K/mm3 (0.0-0.4); Eosinophils % 1.1 % (0.1-12.0); Hematocrit 41.2 % (42.0-52.0); Hemoglobin 13.6 g/dL (14.1-18.0); Lymphocytes # 2.3 K/mm3 (0.7-4.5); Lymphocytes % 24.4 % (10-50); Mean Corpuscular HGB Conc 32.9 g/dL (31.8-35.4); Mean Corpuscular Hemoglobin 29.5 pg (27.0-31.2); Mean Corpuscular Volume 89.6 fl (80-94); Mean Platelet Volume 6.6 fl (7.4-10.4); Monocytes # 0.6 K/mm3 (0.1-1.0); Monocytes % 6.5 % (1.7-9.3); Neutrophils # 6.3 K/mm3 (1.8-7.8); Neutrophils % 67.7 % (37.0-80.0); Platelet Count 295 K/mm3 (142-424); Red Cell Distribution Width 12.7 % (11.5-17.5); White Blood Count 9.3 K/mm3 (4.8-10.8)
[2019-02-11 05:48] LABS: Anion Gap 13.1 mEq/L (5-15); Blood Urea Nitrogen 14 mg/dL (7-18); Calcium 8.5 mg/dL (8.5-10.1); Carbon Dioxide 25 mmol/L (21.0-32.0); Chloride 105 mmol/L (98-107); Creatinine Clearance Estimated 109 mL/min (50-200); Creatinine,Serum 0.96 mg/dL (0.70-1.30); Estimated Glomerular Filt Rate 83 ml/min (>60); GFR (African American) 100 ML/MIN (>60); Glucose 100 mg/dL (74-106); Potassium 4.1 mmoL/L (3.5-5.1); Sodium 139 mmol/L (136-145)
[2019-02-11 06:00] VITALS: BP 119/77; PULSE 70; O2SAT 96
--- NOTE | 2019-02-11 07:19 | PC.NURSE ---
REPORT GIVEN TO Lou YODER
[2019-02-11 08:00] VITALS: BP 118/78; PULSE 77; PULSE 80; RESP 18; TEMP 36.6; O2SAT 98
--- NOTE | 2019-02-11 08:22 | HMH.ACPN2 ---
Internal Medicine - PN: Subj *Date: 02/11/19 *Time: 08:22 Interval history: Patient feels well. He has been ambulating without chest pain or lightheadedness. He reports resolution of his right upper quadrant abdominal pain and right lower rib pain with the GI cocktail he received yesterday afternoon. He has not had any further chest discomfort. Nursing staff reports no witnessed ventricular tachycardia's overnight. Exam Vital signs and Labs for Last 24 Hours: Temp Pulse Resp BP Pulse Ox 97.9 F 70 15 119/77 96 02/11/19 08:00 02/11/19 06:00 02/10/19 22:00 02/11/19 06:00 02/11/19 06:00 Laboratory Results - last 24 hr 02/11/19 05:00: WBC 9.3, RBC 4.60, Hgb 13.6 L, Hct 41.2 L, MCV 89.6, MCH 29.5, MCHC 32.9, RDW 12.7, Plt Count 295, MPV 6.6 L, Neut % (Auto) 67.7, Lymph % (Auto) 24.4, [place] % (Auto) 6.5, Eos % (Auto) 1.1, Baso % (Auto) 0.3, Neut # (Auto) 6.3, Lymph # (Auto) 2.3, [place] # (Auto) 0.6, Eos # (Auto) 0.1, Baso # (Auto) 0.0 02/11/19 05:00: Sodium 139, Potassium 4.1, Chloride 105, Carbon Dioxide 25, Anion Gap 13.1, BUN 14, Creatinine 0.96, Estimated Creat Clear 109, Estimated GFR 83, Est GFR ( Amer) 100, Glucose 100, Calcium 8.5 I & O for Last 24 hours: Intake & Output 02/08/19 02/09/19 02/10/19 02/11/19 11:59 11:59 11:59 11:59 Intake Total 262 / 800 3211 / 3211 1220 / 1220 Output Total 2485 / 2485 2200 / 2200 Balance 262 / 800 726 / 726 -980 / -980 Weight 176 lb 186 lb 4 oz Narrative: Patient is awake and alert. He looks well. Lungs are clear. Heart has a regular rate and rhythm. Assessment and Plan (1) ST elevation myocardial infarction (STEMI) Current visit: Yes Status: Acute Qualifiers: Involved coronary artery: unspecified coronary artery Qualified Code(s): I21.3 - ST elevation (STEMI) myocardial infarction of unspecified site Category: Medical Code(s): I21.3 - ST elevation (STEMI) myocardial infarction of unspecified site (2) Tobacco use Current visit: Yes Status: Acute Category: Medical Code(s): Z72.0 - Tobacco use (3) Right upper quadrant pain Current visit: Yes Status: Acute Category: Medical Code(s): R10.11 - Right upper quadrant pain (4) Ventricular tachycardia seen on athletic monitor Current visit: Yes Status: Acute Category: Medical Code(s): I47.2 - Ventricular tachycardia (5) Acute kidney failure Current visit: Yes Status: Resolved Category: Medical Code(s): N17.9 - Acute kidney failure, unspecified - Assessment and plan all Dx Assessment and Plan for all problems:: Patient will be discharged home today. He will continue dual antiplatelet therapy along with low-dose beta-breana of carvedilol. Patient will follow-up with Dr. Black and Dr. Che this week
--- NOTE | 2019-02-11 08:24 | HMH.DCSUM ---
General - General Admission date:: 02/09/19 Discharge date: 02/11/19 HPI HPI: Mr. Lerner is a 53-year-old male with no significant past medical history who presents with acute onset of chest pain and diaphoresis this morning approximately 130. States he woke up to go to the bathroom and became diaphoretic. Splashed water in his face and then became dizzy. Slid down the wall where he promptly vomited and defecated upon himself. He says shortly thereafter he got up and took a shower and felt better. It was after the shower that he developed chest pain and pressure across his entire chest with radiation down his left arm. It was at this time that he called EMS. Shortly thereafter he was brought to the ER by private vehicle. Upon presentation patient was found to have STEMI and slight elevation in troponin. Business Development Consultant was activated and patient promptly taken for percutaneous intervention. At this time patient is status post placement of single stent in the RCA. He is chest pain-free and resting in the ICU. Denies shortness of breath, cough, headache, nausea vomiting, abdominal pain. Of note patient is a longtime smoker, proximally a pack a day for 40 years. Hospital Course Hospital Course: Patient was observed for 48 hours after stenting of the right coronary artery. In the initial timeframe patient had short runs of V. tach which were felt to be due to reperfusion. Patient was asymptomatic during these episodes. Ambulation was encouraged and activity level increased after 24 hours. Patient had complaints of right lower chest pain radiating around the ribs and into the shoulder blade. This was mildly relieved with use of nitroglycerin but ultimately a GI cocktail resolved the pain. Patient's blood pressure was borderline low over the 48-hour observation. And it was only at discharge the patient was started on a small dose of carvedilol. Patient will follow up with both Dr. Black and Dr. Che this week. He will continue on dual antiplatelet therapy along with low-dose carvedilol 3.125 mg twice daily. Objective Vital signs: Temp Pulse Resp BP Pulse Ox 97.9 F 70 15 119/77 96 02/11/19 08:00 02/11/19 06:00 02/10/19 22:00 02/11/19 06:00 02/11/19 06:00 Results Labs on day of discharge: Labs from last 24 hours 02/11/19 02/11/19 05:00 05:00 WBC 9.3 RBC 4.60 Hgb 13.6 L Hct 41.2 L MCV 89.6 MCH 29.5 MCHC 32.9 RDW 12.7 Plt Count 295 MPV 6.6 L Neut % (Auto) 67.7 Lymph % (Auto) 24.4 [place] % (Auto) 6.5 Eos % (Auto) 1.1 Baso % (Auto) 0.3 Neut # (Auto) 6.3 Lymph # (Auto) 2.3 [place] # (Auto) 0.6 Eos # (Auto) 0.1 Baso # (Auto) 0.0 Sodium 139 Potassium 4.1 Chloride 105 Carbon Dioxide 25 Anion Gap 13.1 BUN 14 Creatinine 0.96 Estimated Creat Clear 109 Estimated GFR 83 Est GFR ( Amer) 100 Glucose 100 Calcium 8.5 DS: Diagnosis - Discharge Diagnosis (1) ST elevation myocardial infarction (STEMI) Status: Acute (2) Tobacco use Status: Acute (3) Right upper quadrant pain Status: Acute (4) Ventricular tachycardia seen on telemetry monitor Status: Acute (5) Acute kidney failure Status: Resolved Discharge Plan - Patient Discharge Instructions ACTIVITY: Continue current activity DIET: continue same diet Patient Instructions: DI for Heart Attack, Beta-blockers Don't Prevent Complications of High Blood Pressure as Effecti, Premature Ventricular Beats, Ventricular Fibrillation, Heart Attack, Coronary Stenting, Ventricular Tachycardia, DI for Arrhythmias, DI for Surgical Site Infection, Aspirin, Anticoagulation Care - Follow up Plan Follow up with: Michael Che MD [Staff Physician] - 02/20/19 2:00 pm ProviderEloina MD [Primary Care Provider] - Bridger Causey MD [Staff Physician] - 2 days Disposition: Home, Self-Jail Medications: Home Medications Medication Instruct
--- NOTE | 2019-02-11 08:28 | P.DS_ITS ---
General - General Admission date:: 02/09/19 Discharge date: 02/11/19 HPI HPI: Mr. Lerner is a 53-year-old male with no significant past medical history who presents with acute onset of chest pain and diaphoresis this morning approximately 130. States he woke up to go to the bathroom and became diaphoretic. Splashed water in his face and then became dizzy. Slid down the wall where he promptly vomited and defecated upon himself. He says shortly t hereafter he got up and took a shower and felt better. It was after the shower that he developed chest pain and pressure across his entire chest with radiation down his left arm. It was at this time that he called EMS. Shortly thereafter he was brought to the ER by private vehicle. Upon presentation patient was found to have STEMI and slight elevation in troponin. Graining Press Operator was activated and patient promptly taken for percutaneous intervention. At this time patient is status post placement of single stent in the RCA. He is chest pain-free and resting in the ICU. Denies shortness of breath, cough, headache, nausea vomiting, abdominal pain. Of note patient is a longtime smoker, proximally a pack a day for 40 years. Hospital Course Hospital Course: Patient was observed for 48 hours after stenting of the right coronary artery. In the initial timeframe patient had short runs of V. tach which were felt to be due to reperfusion. Patient was asymptomatic during these episodes. Ambulation was encouraged and activity level increased after 24 hours. Patient had complaints of right lower chest pain radiating around the ribs and into the agnieszka ulder blade. This was mildly relieved with use of nitroglycerin but ultimately a GI cocktail resolved the pain. Patient's blood pressure was borderline low over the 48-hour observation. And it was only at discharge the patient was started on a small dose of carvedilol. Patient will follow up with both Dr. Black and Dr. Che this week. He will continue on dual antiplatelet therapy along with low-dose carvedilol 3.125 mg twice daily. Objective Vital signs: Temp Pulse Resp BP Pulse Ox 97.9 F 70 15 119/77 96 02/11/19 08:00 02/11/19 06:00 02/10/19 22:00 02/11/19 06:00 02/11/19 06:00 Results Labs on day of discharge: Labs from last 24 hours 02/11/19 02/11/19 05:00 05:00 WBC 9.3 RBC 4.60 Hgb 13.6 L Hct 41.2 L MCV 89.6 MCH 29.5 MCHC 32.9 RDW 12.7 Plt Count 295 MPV 6.6 L Neut % (Auto) 67.7 Lymph % (Auto) 24.4 [place] % (Auto) 6.5 Eos % (Auto) 1.1 Baso % (Auto) 0.3 Neut # (Auto) 6.3 Lymph # (Auto) 2.3 [place] # (Auto) 0.6 Eos # (Auto) 0.1 Baso # (Auto) 0.0 Sodium 139 Potassium 4.1 Chloride 105 Carbon Dioxide 25 Anion Gap 13.1 BUN 14 Creatinine 0.96 Estimated Creat Clear 109 Estimated GFR 83 Est GFR ( Amer) 100 Glucose 100 Calcium 8.5 DS: Diagnosis - Discharge Diagnosis (1) ST elevation myocardial infarction (STEMI) Status: Acute (2) Tobacco use Status: Acute (3) Right upper quadrant pain Status: Acute (4) Ventricular tachycardia seen on general internist and physician leader Sta
--- NOTE | 2019-02-11 09:20 | PC.NURSE ---
EDUCATED PATIENT ON POST CATH CARE AND RESTRICTIONS. EDUCATED ON YURY EFFECTS OF MEDICATIONS. EDUCATED ON IMPORTANCE OF TAKING THEM AND FOLLOW UP WITH MD ON ANY ISSUES THAT ARISE IN THEM. NEED TO CALL FOR FOLLOW UP APT WITH [facility] FOR TUESDAY. EDUCATED ON DISCOUNT CARD ON BRILINTA. VERIFIED WITH MD IT WAS OKAY TO CALL IN PRESCRIPTIONS TO [facility] SINCE [facility] IN [place] IS CLOSED TODAY.
--- NOTE | 2019-02-11 09:27 | HMH.PHACLD ---
Rahat Lerner has received discharge medication counseling on the following medications: BRILINTA 90 MG BID ASPIRIN 81 MG DAILY ATORVASTATIN 40 MG HS CARVEDILOL 3.25 MG BID MD NOT STARTING MONTSE/ARB AT THIS TIME DUE TO BLOOD PRESSURE.
--- NOTE | 2019-02-11 09:28 | HMH.PHAINT ---
DISCHARGE COUNSELING--DISCUSSED WITH PATIENT 4 NEW MEDICATIONS INCLUDING BRILINTA, ASPIRIN, ATORVASTATIN, AND CARVEDILOL.
--- NOTE | 2019-02-11 10:28 | PC.NURSE ---
PRESCRIPTIONS CALLED IN TO PHARMACIST AT [facility]
== END 2019-02-11 10:30 | disposition home or self-care (01) | DRG 247 ==
LOC: ER 05:05 → ICU 06:37 → 2ND 12:42
PROVIDERS: Admitting Provider Internal Medicine Adolescent Medicine; Emergency Provider Emergency Medicine; Referring Provider Internal Medicine; Visit Provider Internal Medicine Adolescent Medicine
PROC: 027034Z Dilation of Coronary Artery, One Artery with Drug-eluting Intraluminal Device, Percutaneous Approach (ICD-10-PCS; principal; 2019-02-09 05:00)
DX: I21.11 ST elevation (STEMI) myocardial infarction involving right coronary artery (principal); I47.2 Ventricular tachycardia; Z72.0 Tobacco use; E78.5 Hyperlipidemia, unspecified; I25.10 Atherosclerotic heart disease of native coronary artery without angina pectoris; I25.83 Coronary atherosclerosis due to lipid rich plaque
CPT/HCPCS: 36415; 71045; 80048; 80061; 84484; 85007; 85025; 85347; 85610; 85730; 92941; 93005; 93306; 93458; 96365; 96375; 96376; 99152; 99283; C1725; C1769; C1876; C9606; J1327; J1644; J2405; Q9967

== ENCOUNTER 2019-02-15 10:31 | Outpatient (RCR) | payer OTHER, SELFPAY | END 2019-04-20 15:27 | disposition home or self-care (01) | LOC: PT 10:31 | PROVIDERS: Visit Provider Internal Medicine | DX: Z95.5 Presence of coronary angioplasty implant and graft (principal); I25.10 Atherosclerotic heart disease of native coronary artery without angina pectoris | CPT/HCPCS: 93798 ==

== ENCOUNTER → 2019-02-20 14:15 | Outpatient (CLI) | payer OTHER, SELFPAY ==
[2019-02-20 14:49] LABS: Hematocrit 42.1 % (42.0-52.0); Hemoglobin 13.7 g/dL (14.1-18.0)
[2019-02-20 15:30] LABS: Blood Urea Nitrogen 14 mg/dL (7-18); Creatinine,Serum 1.28 mg/dL (0.70-1.30); Estimated Glomerular Filt Rate 59 ml/min (>60); GFR (African American) 72 ML/MIN (>60)
== END ==
PROVIDERS: Visit Provider Internal Medicine
DX: I25.10 Atherosclerotic heart disease of native coronary artery without angina pectoris (principal)
CPT/HCPCS: 36415; 82565; 84520; 85014; 85018

== ENCOUNTER → 2020-08-07 15:29 | Outpatient (CLI) | payer MEDICAID, SELFPAY ==
[2020-08-07 16:22] LABS: Basophils % 0.7 % (0.1-2.0); Eosinophils # 0.2 K/mm3 (0.0-0.4); Eosinophils % 3.3 % (0.1-12.0); Hematocrit 50.1 % (42.0-52.0); Hemoglobin 16.5 g/dL (14.1-18.0); Lymphocytes # 1.7 K/mm3 (0.7-4.5); Lymphocytes % 37.5 % (10-50); Mean Corpuscular Hemoglobin 31.7 pg (27.0-31.2); Mean Corpuscular Volume 96.3 fl (80-94); Mean Platelet Volume 7.4 fl (7.4-10.4); Monocytes # 0.3 K/mm3 (0.1-1.0); Monocytes % 6.5 % (1.7-9.3); Neutrophils # 2.4 K/mm3 (1.8-7.8); Platelet Count 391 K/mm3 (142-424); Red Cell Distribution Width 13.2 % (11.5-17.5); White Blood Count 4.6 K/mm3 (4.8-10.8)
[2020-08-07 16:34] LABS: Alanine Aminotransferase 17 U/L (12-78); Albumin Level 4.5 g/dl (3.5-5.0); Albumin/Globulin Ratio 1.6 (1.1-1.8); Alkaline Phosphatase 59 U/L (38-126); Anion Gap 11.3 mEq/L (5-15); Aspartate Amino Transferase 37 U/L (17-59); Bilirubin,Total 0.7 mg/dl (0.2-1.3); Blood Urea Nitrogen 15 mg/dl (9-20); Calcium 9.5 mg/dl (8.4-10.2); Carbon Dioxide 28 mmol/L (22.0-30.0); Chloride 105 mmol/L (98-107); Chol/HDL Ratio 3.7 (1-3.5); Cholesterol 232 mg/dl (140-200); Estimated Glomerular Filt Rate 78 ml/min (>60); GFR (African American) 95 ML/MIN (>60); Globulin 2.9 g/dL (1.3-3.2); Glucose 99 mg/dl (74-100); HDL Cholesterol 63 mg/dl (40-60); Potassium 4.3 mmoL/L (3.5-5.1); Sodium 140 mmol/L (136-145); Total Protein,Serum 7.4 g/dl (6.3-8.2); Triglycerides 224 mg/dl (30-150); VLDL Cholesterol 45 mg/dL (0-40)
[2020-08-07 16:45] LABS: Direct LDL Cholesterol 97.26 mg/dL (100-129)
[2020-08-07 16:51] LABS: T4 (Thyroxine) 7.8 ug/dl (5.53-11.0)
[2020-08-07 16:52] LABS: 25-OH Vitamin D, Total 17.1 ng/mL (30-100)
[2020-08-07 17:05] LABS: Thyroid Stimulating Hormone 4.25 uIU/mL (0.465-4.68)
[2020-08-09 12:54] LABS: Prostate Specific Ag 0.8 ng/mL (0.0-4.0)
== END ==
PROVIDERS: Visit Provider Nurse Practitioner Family
DX: E78.5 Hyperlipidemia, unspecified (principal); I11.9 Hypertensive heart disease without heart failure; I25.10 Atherosclerotic heart disease of native coronary artery without angina pectoris; Z12.11 Encounter for screening for malignant neoplasm of colon; N52.9 Male erectile dysfunction, unspecified; Z72.0 Tobacco use; E55.9 Vitamin D deficiency, unspecified
CPT/HCPCS: 80053; 80061; 82306; 84153; 84154; 84436; 84443; 85025

== ENCOUNTER → 2021-01-09 13:04 | Outpatient (CLI) | payer MEDICAID, SELFPAY ==
--- NOTE | 2021-01-09 13:05 | CA_ITS ---
APPROVED REPORT EXAM: Comprehensive 2D, Doppler, and color-flow Echocardiogram Casing Trimmer: Gayathri Hunt RT(R) Ht: 6 ft 0 in Wt: 170lbs BSA: 1.99 BP: 160/82 mmHg Indications: CAD, HHD, ischemic CM, smoker 2D Dimensions LVOT 2.01 cm (M/F) 1.5-2.5 LVEF (Parks's) 50.90 % M: 52 - 72 LV Volume 109.30 mL M: 62 - 150 LV Volume Index 55.20 mL/m2 M: 34 - 74 LA Volume 16.40 mL LA Volume Index 8.28 mL/m2 (M/F) 16-34 M-Mode Dimensions RVDd 1.68 cm (0.9-2.6) LVDd 4.49 cm (3.5-5.7) LVDs 3.44 cm (3.5-5.7) IVSd 1.20 cm (0.6-1.1) PWd 0.64 cm (0.6-1.1) EF (Teich) 47.00% FS 23.40% EDV (Teich) 92.00 mL ESV (Teich) 48.80 mL LV Diastology E Decel Time 177.00 (160-240 msec) E/A Ratio 0.9 MED E' 9.40 (< 7 cm/sec) E'/MED E' Ratio 7.34 (>14) LAT E' 10.90 (<10 cm/sec) E/LAT E' Ratio 6.33 (>14) Mitral Valve MV E Max Yao. 69.00 (40-130 cm/s) MV A Velocity 81.00 (40-130 cm/s) E/A Ratio 0.86 MV Decel. Time 177.00 (160-240 ms) MV PHT 52.00 ms Left Ventricle Left atrium is normal size, left ventricle is normal size, there is no concentric left ventricular hypertrophy, visually estimated ejection fraction 50% with no regional wall motion abnormality, diastolic parameters are within normal range. Endocardial surfaces are poorly visualized. Right Ventricle Right atrium and right ventricle are normal size and contractility. Aortic Valve Aortic valve is grossly normal, there is no aortic stenosis or aortic insufficiency. Mitral Valve Mitral valve is grossly normal, there is trace mitral regurgitation. Tricuspid Valve Tricuspid grossly normal, there is trace tricuspid regurgitation, tricuspid rotation jet velocity is inadequate for calculation of the right ventricular systolic pressure. Pulmonic Valve Pulmonic valve is poorly visualized. Great Vessels Aortic root is normal size. Pericardium No significant pericardial effusion noted. Conclusion 1. Normal left ventricular size, preserved left ventricular systolic function, visually estimated ejection fraction 50% with no regional wall motion abnormality, endocardial surfaces are very poorly visualized. Diastolic parameters are within normal range. 2. Trace mitral and tricuspid regurgitation. 3. No significant pericardial effusion noted. Electronically signed by : Reagan Pichardo, 01/09/2021 14:25:51
== END ==
PROVIDERS: PCP Nurse Practitioner Family; Visit Provider Nurse Practitioner Family
DX: I25.10 Atherosclerotic heart disease of native coronary artery without angina pectoris (principal)
CPT/HCPCS: 93306

== ENCOUNTER → 2021-01-14 11:03 | Outpatient (CLI) | payer MEDICAID, SELFPAY ==
[2021-01-14 12:35] LABS: Alanine Aminotransferase 27 U/L (12-78); Albumin Level 4.4 g/dl (3.5-5.0); Alkaline Phosphatase 59 U/L (38-126); Aspartate Amino Transferase 41 U/L (17-59); Bilirubin,Direct 0.4 mg/dl (0.0-0.4); Bilirubin,Indirect 0.4 mg/dL (0.0-0.9); Bilirubin,Total 0.8 mg/dl (0.2-1.3); Bilirubin,Unconjugated 0.4 mg/dL (0.0-1.1); Cholesterol 166 mg/dl (140-200); HDL Cholesterol 55 mg/dl (40-60); Total Protein,Serum 6.9 g/dl (6.3-8.2)
[2021-01-14 12:45] LABS: Direct LDL Cholesterol 48.04 mg/dL (100-129); Triglycerides 613 mg/dl (30-150)
== END ==
PROVIDERS: Visit Provider Nurse Practitioner Family
DX: I11.9 Hypertensive heart disease without heart failure (principal); E78.5 Hyperlipidemia, unspecified; F17.210 Nicotine dependence, cigarettes, uncomplicated; I25.10 Atherosclerotic heart disease of native coronary artery without angina pectoris; I42.9 Cardiomyopathy, unspecified
CPT/HCPCS: 36415; 80061; 80076

== ENCOUNTER → 2021-03-30 11:49 | Outpatient (CLI) | payer MEDICAID, SELFPAY ==
[2021-03-30 12:59] LABS: Bilirubin,Unconjugated 1.2 mg/dL (0.0-1.1)
[2021-03-30 13:00] LABS: Alanine Aminotransferase 17 U/L (12-78); Albumin Level 4.4 g/dl (3.5-5.0); Alkaline Phosphatase 66 U/L (38-126); Aspartate Amino Transferase 29 U/L (17-59); Bilirubin,Direct 0.4 mg/dl (0.0-0.4); Bilirubin,Indirect 1.2 mg/dL (0.0-0.9); Bilirubin,Total 1.6 mg/dl (0.2-1.3); Chol/HDL Ratio 2.7 (1-3.5); Cholesterol 168 mg/dl (140-200); HDL Cholesterol 63 mg/dl (40-60); Total Protein,Serum 7.1 g/dl (6.3-8.2); Triglycerides 212 mg/dl (30-150); VLDL Cholesterol 42 mg/dL (0-40)
[2021-03-30 13:11] LABS: Direct LDL Cholesterol 59.09 mg/dL (100-129)
== END ==
PROVIDERS: Visit Provider Physician Assistant
DX: I11.9 Hypertensive heart disease without heart failure (principal); I25.10 Atherosclerotic heart disease of native coronary artery without angina pectoris; E78.5 Hyperlipidemia, unspecified; I42.9 Cardiomyopathy, unspecified; I47.2 Ventricular tachycardia; F17.200 Nicotine dependence, unspecified, uncomplicated
CPT/HCPCS: 36415; 80061; 80076

== ENCOUNTER → 2022-05-07 18:35 | Outpatient (CLI) | payer MEDICAID, SELFPAY ==
[2022-05-07 19:21] LABS: Alanine Aminotransferase 30 U/L (12-78); Albumin Level 4.3 g/dl (3.5-5.0); Albumin/Globulin Ratio 1.6 (1.1-1.8); Alkaline Phosphatase 69 U/L (38-126); Anion Gap 11.3 mEq/L (5-15); Aspartate Amino Transferase 41 U/L (17-59); Bilirubin,Total 1.5 mg/dl (0.2-1.3); Blood Urea Nitrogen 12 mg/dl (9-20); Calcium 9.5 mg/dl (8.4-10.2); Carbon Dioxide 25 mmol/L (22.0-30.0); Chloride 105 mmol/L (98-107); Chol/HDL Ratio 2.7 (1-3.5); Cholesterol 145 mg/dl (140-200); Estimated Glomerular Filt Rate 70 ml/min (>60); GFR (African American) 84 ML/MIN (>60); Globulin 2.7 g/dL (1.3-3.2); Glucose 103 mg/dl (74-100); HDL Cholesterol 54 mg/dl (40-60); Potassium 4.3 mmoL/L (3.5-5.1); Sodium 137 mmol/L (136-145); Triglycerides 164 mg/dl (30-150); VLDL Cholesterol 33 mg/dL (0-40)
[2022-05-12 19:30] LABS: Direct LDL Cholesterol 56 mg/dL (100-129)
== END ==
PROVIDERS: PCP Family Medicine; Visit Provider Family Medicine
DX: E78.2 Mixed hyperlipidemia (principal)
CPT/HCPCS: 80053; 80061

== ENCOUNTER → 2023-02-08 23:28 | Outpatient (CLI) | payer MEDICAID, SELFPAY ==
[2023-02-08 19:54] LABS: Basophils % 0.3 % (0.1-2.0); Eosinophils # 0.1 K/mm3 (0.0-0.4); Eosinophils % 1.6 % (0.1-12.0); Hematocrit 44.1 % (42.0-52.0); Hemoglobin 14.5 g/dL (14.1-18.0); Lymphocytes # 1.6 K/mm3 (0.7-4.5); Lymphocytes % 31.8 % (10-50); Mean Corpuscular HGB Conc 32.8 g/dL (31.8-35.4); Mean Corpuscular Hemoglobin 31.9 pg (27.0-31.2); Mean Platelet Volume 7.6 fl (7.4-10.4); Monocytes # 0.3 K/mm3 (0.1-1.0); Monocytes % 5.8 % (1.7-9.3); Neutrophils % 60.4 % (37.0-80.0); Platelet Count 380 K/mm3 (142-424); Red Blood Count 4.54 M/mm3 (4.60-6.20); Red Cell Distribution Width 13.6 % (11.5-17.5)
[2023-02-08 20:06] LABS: Alanine Aminotransferase 27 U/L (12-78); Albumin/Globulin Ratio 1.5 (1.1-1.8); Alkaline Phosphatase 60 U/L (38-126); Anion Gap 13.2 mEq/L (5-15); Aspartate Amino Transferase 38 U/L (17-59); Bilirubin,Total 0.8 mg/dl (0.2-1.3); Blood Urea Nitrogen 12 mg/dl (9-20); Calcium 8.8 mg/dl (8.4-10.2); Carbon Dioxide 27 mmol/L (22.0-30.0); Chloride 104 mmol/L (98-107); Chol/HDL Ratio 2.4 (1-3.5); Cholesterol 143 mg/dl (140-200); Estimated Glomerular Filt Rate 78 ml/min (>60); GFR (African American) 94 ML/MIN (>60); Globulin 2.6 g/dL (1.3-3.2); Glucose 93 mg/dl (74-100); HDL Cholesterol 59 mg/dl (40-60); Potassium 4.2 mmoL/L (3.5-5.1); Sodium 140 mmol/L (136-145); Total Protein,Serum 6.6 g/dl (6.3-8.2); Triglycerides 308 mg/dl (30-150); VLDL Cholesterol 62 mg/dL (0-40)
[2023-02-08 20:22] LABS: Direct LDL Cholesterol 42.06 mg/dL (100-129)
[2023-02-08 20:36] LABS: 25-OH Vitamin D, Total 20.4 ng/mL (30-100)
[2023-02-08 20:43] LABS: Prostate Specific Ag Screen 0.9 ng/ml (0.0-4.0); Thyroid Stimulating Hormone 4.65 uIU/mL (0.465-4.68)
== END ==
LOC: LAB.DROPOF 23:28
PROVIDERS: PCP Family Medicine; Visit Provider Family Medicine
DX: Z00.00 Encounter for general adult medical examination without abnormal findings (principal); E78.5 Hyperlipidemia, unspecified; E55.9 Vitamin D deficiency, unspecified; Z79.899 Other long term (current) drug therapy
CPT/HCPCS: 80053; 80061; 82306; 83036; 84443; 85025; G0103